=== PATIENT | male | born 1990 | race Caucasian/White ===

== ENCOUNTER 2018-02-22 16:05 | Emergency (ER) | payer SELFPAY ==
[~2018-02-22] VITALS: Ht 182.9 cm; Wt 93.0 kg
[~2018-02-22 16:05] MED LIST: IBUP600 PO; IBUP800 PO; OXYACE5T PO; Prednisone20 MG PO; SULI200 PO
[2018-02-22] MEDS ORDERED: IBUP600 PO (17:40)
[2018-02-22] MEDS ORDERED: Norco 5-325 Ta1 EACH PO (17:40)
== END 2018-02-22 17:47 | disposition home or self-care (01) ==
LOC: ER 16:05
DX: M25.462 Effusion, left knee (principal); Z91.048 Other nonmedicinal substance allergy status
CPT/HCPCS: 29505; 73562-LT; 99283